=== PATIENT | male | born 1955 | race Caucasian/White ===

== ENCOUNTER → 2023-04-08 06:29 | Outpatient (REF) | payer BC, SELFPAY ==
[2023-04-08 07:15] LABS: % Basophils 0.7 % (0-2); % Eosinophils 6.1 % (0-6); % Immature Granulocytes 0.1 % (0-0.5); % Lymphocytes 28.6 % (20.5-51.1); % Monocytes 8.3 % (1.7-9.3); % Neutrophils 56.2 % (42.2-75.2); Absolute Basophils 0.1 10^3/uL (0-0.2); Absolute Eosinophils 0.4 10^3/uL (0-0.7); Absolute Lymphocytes 1.9 10^3/uL (1.2-3.4); Absolute Monocytes 0.6 10^3/uL (0.1-0.6); Absolute Neutrophils 3.8 10^3/uL (1.4-6.5); Hematocrit 38.8 % (39.0-52.0); Hemoglobin 13.3 g/dL (13.0-18.0); Mean Corp Hgb Conc. 34.3 g/dL (33.0-37.0); Mean Corpuscular Hgb 30.8 pg (27.0-31.0); Mean Corpuscular Volume 89.8 fL (80.0-94.0); Mean Platelet Volume 10.6 fL (7.4-10.4); Nucleated Red Blood Cells % 0 % (-); Platelet Count 232 10^3/uL (130-400); Red Blood Cell Count 4.32 10^6/uL (4.70-6.10); Red Cell Dist. Width 13.3 % (11.5-14.5); White Blood Cell Count 6.8 10^3/uL (4.8-10.8)
[2023-04-08 07:32] LABS: Urine Albumin Trace (Neg - Trace); Urine Bilirubin Negative (Negative); Urine Character Clear (Clear); Urine Color Yellow; Urine Glucose Negative (Negative); Urine Ketone Negative (Negative); Urine Leukocyte Negative (Negative); Urine Nitrite Negative (Negative); Urine Occult Blood Negative (Negative); Urine Urobilinogen Negative (Neg - 1+)
[2023-04-08 08:03] LABS: ALT (SGPT) 40 U/L (0-50); AST (SGOT) 32 U/L (17-59); Albumin 4.5 g/dl (3.5-5.0); Alkaline Phosphatase 101 U/L (38-126); Blood Urea Nitrogen 19 mg/dl (9-20); Calcium 9.6 mg/dl (8.4-10.2); Carbon Dioxide 25 mmol/L (22-30); Chloride 105 mmol/L (98-107); Glucose 222 mg/dl (70-99); HDL Cholesterol 51 mg/dl; LDL Cholesterol, Calculated 78 mg/dl; Potassium 4.6 mmol/L (3.5-5.1); Sodium 136 mmol/L (135-145); Total Cholesterol 168 mg/dl (50-199); Total Protein 7.3 g/dl (6.3-8.2); Triglyceride 197 mg/dl (10-149); Very Low Density Lipoprotein 39 mg/dl (0-30); eGFR > 60.00
[2023-04-08 09:29] LABS: Glycohemoglobin (HgbA1c) 10.4 % (4.0-5.6)
[2023-04-10 11:52] LABS: Fructosamine 364 umol/L (205-285)
== END ==
LOC: REG 06:29
PROVIDERS: ATTENDING PHYSICIAN Internal Medicine Geriatric Medicine
DX: E78.2 Mixed hyperlipidemia (principal); M54.16 Radiculopathy, lumbar region; M25.561 Pain in right knee; I73.9 Peripheral vascular disease, unspecified
CPT/HCPCS: 36415; 80053; 80061; 81003; 82985; 83036; 85025

== ENCOUNTER → 2023-08-13 06:17 | Outpatient (REF) | payer BC, SELFPAY ==
[2023-08-13 07:22] LABS: % Eosinophils 3.8 % (0-6); % Immature Granulocytes 0.3 % (0-0.5); % Lymphocytes 34.5 % (20.5-51.1); % Monocytes 7.9 % (1.7-9.3); % Neutrophils 52.5 % (42.2-75.2); Absolute Basophils 0.1 10^3/uL (0-0.2); Absolute Eosinophils 0.3 10^3/uL (0-0.7); Absolute Lymphocytes 2.5 10^3/uL (1.2-3.4); Absolute Monocytes 0.6 10^3/uL (0.1-0.6); Absolute Neutrophils 3.9 10^3/uL (1.4-6.5); Hematocrit 40.2 % (39.0-52.0); Hemoglobin 13.3 g/dL (13.0-18.0); Mean Corp Hgb Conc. 33.1 g/dL (33.0-37.0); Mean Corpuscular Hgb 30.3 pg (27.0-31.0); Mean Corpuscular Volume 91.6 fL (80.0-94.0); Mean Platelet Volume 10.8 fL (7.4-10.4); Nucleated Red Blood Cells % 0 % (-); Platelet Count 224 10^3/uL (130-400); Red Blood Cell Count 4.39 10^6/uL (4.70-6.10); Red Cell Dist. Width 12.6 % (11.5-14.5); Urine Albumin Negative (Neg - Trace); Urine Bilirubin Negative (Negative); Urine Character Clear (Clear); Urine Color Yellow; Urine Glucose Negative (Negative); Urine Ketone Negative (Negative); Urine Leukocyte Negative (Negative); Urine Nitrite Negative (Negative); Urine Occult Blood Negative (Negative); Urine Urobilinogen Negative (Neg - 1+); White Blood Cell Count 7.4 10^3/uL (4.8-10.8)
[2023-08-13 08:02] LABS: ALT (SGPT) 40 U/L (0-50); AST (SGOT) 33 U/L (17-59); Albumin 4.6 g/dl (3.5-5.0); Alkaline Phosphatase 90 U/L (38-126); Blood Urea Nitrogen 22 mg/dl (9-20); Calcium 9.9 mg/dl (8.4-10.2); Carbon Dioxide 25 mmol/L (22-30); Chloride 103 mmol/L (98-107); Glucose 187 mg/dl (70-99); HDL Cholesterol 54 mg/dl; LDL Cholesterol, Calculated 60 mg/dl; Potassium 4.4 mmol/L (3.5-5.1); Sodium 140 mmol/L (135-145); Total Bilirubin 0.9 mg/dl (0.2-1.3); Total Cholesterol 166 mg/dl (50-199); Total Protein 7.2 g/dl (6.3-8.2); Triglyceride 261 mg/dl (10-149); Very Low Density Lipoprotein 52 mg/dl (0-30); eGFR > 60.00
[2023-08-13 09:39] LABS: Glycohemoglobin (HgbA1c) 9.3 % (4.0-5.6)
== END ==
LOC: REG 06:17
PROVIDERS: ATTENDING PHYSICIAN Internal Medicine Geriatric Medicine
DX: E78.2 Mixed hyperlipidemia (principal); M54.16 Radiculopathy, lumbar region; M25.561 Pain in right knee; I73.9 Peripheral vascular disease, unspecified; Z13.31 Encounter for screening for depression; E11.41 Type 2 diabetes mellitus with diabetic mononeuropathy; G58.9 Mononeuropathy, unspecified; Z13.89 Encounter for screening for other disorder
CPT/HCPCS: 36415; 80053; 80061; 81003; 83036; 85025

== ENCOUNTER → 2023-12-24 07:02 | Outpatient (REF) | payer BC, SELFPAY ==
[2023-12-24 07:51] LABS: % Basophils 0.8 % (0-2); % Eosinophils 4.6 % (0-6); % Immature Granulocytes 0.2 % (0-0.5); % Lymphocytes 32.8 % (20.5-51.1); % Monocytes 8.9 % (1.7-9.3); % Neutrophils 52.7 % (42.2-75.2); Absolute Basophils 0.1 10^3/uL (0-0.2); Absolute Eosinophils 0.3 10^3/uL (0-0.7); Absolute Monocytes 0.6 10^3/uL (0.1-0.6); Absolute Neutrophils 3.2 10^3/uL (1.4-6.5); Hematocrit 40.9 % (39.0-52.0); Mean Corp Hgb Conc. 34.2 g/dL (33.0-37.0); Mean Corpuscular Hgb 30.4 pg (27.0-31.0); Mean Corpuscular Volume 88.9 fL (80.0-94.0); Mean Platelet Volume 10.3 fL (7.4-10.4); Nucleated Red Blood Cells % 0 % (-); Platelet Count 263 10^3/uL (130-400); Red Cell Dist. Width 12.7 % (11.5-14.5); White Blood Cell Count 6.2 10^3/uL (4.8-10.8)
[2023-12-24 08:20] LABS: Microalbumin, Random Urine 4.5 mg/dl (0.6-1.7)
[2023-12-24 08:24] LABS: HDL Cholesterol 61 mg/dl; LDL Cholesterol, Calculated 63 mg/dl; Total Cholesterol 166 mg/dl (50-199); Triglyceride 211 mg/dl (10-149); Very Low Density Lipoprotein 42 mg/dl (0-30)
[2023-12-24 08:34] LABS: Vitamin D, 25-OH*** 46.1 ng/mL (30-80)
[2023-12-24 08:43] LABS: Microalbumin/creatinine Ratio 29.5 mg/g
[2023-12-24 08:53] LABS: Glycohemoglobin (HgbA1c) 9.1 % (4.0-5.6)
[2023-12-26 00:41] LABS: C-Peptide 2.7 ng/mL (0.5-3.3)
== END ==
LOC: REG 07:02
PROVIDERS: ATTENDING PHYSICIAN Internal Medicine Geriatric Medicine
DX: E11.9 Type 2 diabetes mellitus without complications (principal); E78.2 Mixed hyperlipidemia; M54.16 Radiculopathy, lumbar region; M25.561 Pain in right knee; I73.9 Peripheral vascular disease, unspecified; Z13.31 Encounter for screening for depression; E11.41 Type 2 diabetes mellitus with diabetic mononeuropathy; G58.9 Mononeuropathy, unspecified; Z13.89 Encounter for screening for other disorder
CPT/HCPCS: 36415; 80061; 82043; 82306; 82570; 83036; 84681; 85025

== ENCOUNTER → 2024-07-27 06:34 | Outpatient (REF) | payer BC, SELFPAY ==
[2024-07-27 07:43] LABS: % Eosinophils 5.7 % (0-6); % Immature Granulocytes 0.2 % (0-0.5); % Lymphocytes 40.4 % (20.5-51.1); % Monocytes 8.6 % (1.7-9.3); % Neutrophils 44.1 % (42.2-75.2); Absolute Basophils 0.1 10^3/uL (0-0.2); Absolute Eosinophils 0.4 10^3/uL (0-0.7); Absolute Lymphocytes 2.5 10^3/uL (1.2-3.4); Absolute Monocytes 0.5 10^3/uL (0.1-0.6); Absolute Neutrophils 2.7 10^3/uL (1.4-6.5); Hematocrit 38.7 % (39.0-52.0); Mean Corp Hgb Conc. 33.6 g/dL (33.0-37.0); Mean Corpuscular Volume 92.4 fL (80.0-94.0); Mean Platelet Volume 10.4 fL (7.4-10.4); Nucleated Red Blood Cells % 0 % (-); Platelet Count 247 10^3/uL (130-400); Red Blood Cell Count 4.19 10^6/uL (4.70-6.10); Red Cell Dist. Width 12.9 % (11.5-14.5); White Blood Cell Count 6.1 10^3/uL (4.8-10.8)
[2024-07-27 07:57] LABS: Urine Albumin 1+ (Neg - Trace); Urine Bilirubin Negative (Negative); Urine Character Clear (Clear); Urine Color Yellow; Urine Glucose Negative (Negative); Urine Ketone Negative (Negative); Urine Leukocyte Negative (Negative); Urine Nitrite Negative (Negative); Urine Occult Blood Negative (Negative); Urine Urobilinogen Negative (Neg - 1+)
[2024-07-27 08:12] LABS: Urine Mucus Moderate
[2024-07-27 08:13] LABS: ALT (SGPT) 38 U/L (0-50); AST (SGOT) 31 U/L (17-59); Albumin 4.8 g/dl (3.5-5.0); Alkaline Phosphatase 68 U/L (38-126); Blood Urea Nitrogen 25 mg/dl (9-20); Calcium 9.7 mg/dl (8.4-10.2); Carbon Dioxide 23 mmol/L (22-30); Chloride 107 mmol/L (98-107); Glucose 154 mg/dl (70-99); HDL Cholesterol 60 mg/dl; LDL Cholesterol, Calculated 48 mg/dl; Sodium 141 mmol/L (135-145); Total Bilirubin 0.9 mg/dl (0.2-1.3); Total Cholesterol 139 mg/dl (50-199); Total Protein 7.4 g/dl (6.3-8.2); Triglyceride 157 mg/dl (10-149); Urine Red Blood Cell 0-2 /HPF (0-2); Urine White Cell 0-2 /HPF (0-5); Very Low Density Lipoprotein 31 mg/dl (0-30); eGFR > 60.00
[2024-07-27 08:24] LABS: Glycohemoglobin (HgbA1c) 8.2 % (4.0-5.6)
[2024-07-27 08:34] LABS: Potassium 4.5 mmol/L (3.5-5.1)
== END ==
LOC: REG 06:34
PROVIDERS: ATTENDING PHYSICIAN Internal Medicine Geriatric Medicine
DX: Z00.00 Encounter for general adult medical examination without abnormal findings (principal)
CPT/HCPCS: 36415; 80053; 80061; 81003; 81015; 83036; 85025

== ENCOUNTER → 2024-08-29 15:54 | Outpatient (REF) | payer BC, SELFPAY | LOC: RAD 15:54 | PROVIDERS: ATTENDING PHYSICIAN Internal Medicine Geriatric Medicine | DX: M54.2 Cervicalgia (principal); R20.2 Paresthesia of skin | CPT/HCPCS: 72052 ==

== ENCOUNTER → 2024-08-30 07:13 | Outpatient (REF) | payer BC, SELFPAY ==
[2024-08-30 08:57] LABS: Albumin 4.7 g/dl (3.5-5.0); Blood Urea Nitrogen 19 mg/dl (9-20); Calcium 9.8 mg/dl (8.4-10.2); Carbon Dioxide 23 mmol/L (22-30); Chloride 106 mmol/L (98-107); Glucose 205 mg/dl (70-99); Potassium 4.8 mmol/L (3.5-5.1); Sodium 137 mmol/L (135-145); eGFR > 60.00
== END ==
LOC: REG 07:13
PROVIDERS: ATTENDING PHYSICIAN Internal Medicine Geriatric Medicine
DX: E11.41 Type 2 diabetes mellitus with diabetic mononeuropathy (principal); E78.2 Mixed hyperlipidemia; M54.16 Radiculopathy, lumbar region; M25.561 Pain in right knee; I73.9 Peripheral vascular disease, unspecified; Z13.31 Encounter for screening for depression; G58.9 Mononeuropathy, unspecified; Z23 Encounter for immunization; E11.42 Type 2 diabetes mellitus with diabetic polyneuropathy
CPT/HCPCS: 36415; 80069; 82985

== ENCOUNTER → 2024-09-07 10:16 | Outpatient (REF) | payer BC, SELFPAY | LOC: PAVMRI 10:16 | PROVIDERS: ATTENDING PHYSICIAN Internal Medicine Geriatric Medicine | DX: R20.2 Paresthesia of skin (principal); M54.2 Cervicalgia | CPT/HCPCS: 72141 ==

== ENCOUNTER 2024-12-10 19:36 | Emergency (ER) | payer BC, SELFPAY ==
[2024-12-10 19:38] VITALS: BP 217/113
--- NOTE | 2024-12-10 20:38 | ED.GENMED ---
History of Present Illness
General
Chief Complaint: Back Pain
Source: patient
Exam Limitations: none
Time Seen by Provider: 12/10/24 20:36
Nursing documentation reviewed up to this point in time: agreed with
History of Present Illness
History of Present Illness:
Patient is a 69-year-old male with past medical history of spinal stenosis degenerative disc disease previous laminectomy presents today for urination. On Thursday he was pulling tomato plants out of his garden felt sudden pain in his right lower
back that went to his thigh. This has been persistent. His primary complaint is pain to the right thigh worse with standing and walking. He did see his family doctor on Thursday yesterday and was given naproxen and cyclobenzaprine without relief.
He denies any bowel or bladder incontinence. Denies any weakness in his lower extremities. Denies any saddle paresthesia or leg weakness. His primary complaint is pain. He denies any recent fever or chills.
Past History
Past History
ED Past Medical History: None
Social History
Tobacco: Non-smoker
Alcohol: None
Personal:
Living: with family
Phy Exam
General Physical Exam
General Presentation: no apparent distress
General age: appears stated age
General Skin: warm and dry
General Habitus: normal
General Mental: alert
General Hydration: appears well hydrated
Neurological Exam
Neurological Exam: alert, oriented x3, no motor deficits, no sensory deficits and other (Intact sensation to bilateral extremities normal dorsiflexion plantarflexion; neg straight leg raise b/l )
Musculoskeletal Exam
Musculoskeletal Exam: full ROM
Skin Exam
Skin Exam: normal color and warm/dry
Psychiatric Exam
Psychiatric Exam: normal mood/affect
Course
Orders/Labs/Results
Orders:
Orders
12/10/24 20:57
Dexamethasone Pf [Decadron] 10 mg PO NOW STA
12/10/24 20:58
Bladder Scan- Treatment ONCE
HYDROmorphone [Dilaudid] 1 mg IM NOW STA
12/10/24 22:50
Oxycodone [Roxicodone] 5 mg .ROUTE .STK-MED ONE
12/10/24 22:51
Oxycodone [Roxicodone] 5 mg PO NOW STA
Vital Signs
Initial and Last Documented VS:
Initial Vital Signs
Temp Pulse Resp BP Pulse Ox
97.8 F 84 16 217/113 97
12/10/24 19:38 12/10/24 19:38 12/10/24 19:38 12/10/24 19:38 12/10/24 19:38
Last Documented Vital Signs
Temp Pulse Resp BP Pulse Ox
97.8 F 60 20 154/78 98
12/10/24 19:38 12/10/24 22:09 12/10/24 22:09 12/10/24 22:09 12/10/24 22:54
MDM/Problems Addressed
Differential Diagnosis Includes:
Not limited to muscle sprain strain, sciatica radiculopathy
MDM/Problems Addressed:
Symptoms are consistent with sciatica. No neurological deficit patient has had sciatica in the past and this does feel similar. Patient complains of pain to the right thigh which shoots down from his back. He was given steroids and pain
medication here feeling better. He is on naproxen and Flexeril without relief we will have him stop naproxen and start steroid taper and stop Flexeril and start narcotic medicine for pain control. I did review with patient's at steroids can raise
his blood sugar to watch his diet closely watch his sugars. He is to follow-up with his family doctor the next several days.
*Pulse Oximetry
SaO2: 97
Oxygen Mode of Delivery: Room air
Patient hypoxic: no
*Critical Care Note
Total Time (30-74mins, 75-104mins- exclusive of procedures): Not Applicable
ED Attending Note
-
Portions of this chart may have been created with voice recognition software.� Occasional wrong word or��sound alike� substitutions may have occurred due to the inherent limitations of voice recognition software.
Discharge Plan
Departure
Patient Disposition: Home (Routine Discharge)
Date of Disposition: 12/10/24
Time of Disposition: 22:35
Patient with high blood pressure during this ER visit?: Yes
Condition: Fair
Covid-19: Not Applicable
Discharge Problem:
Sciatica
Instructions: Sciatica (DC), BLOOD PRESSURE
Prescriptions:
New
oxycodone 5 mg tablet
5 mg PO Q6H PRN (Reason: Pain) Qty: 10 0RF
prednisone 10 mg Tablet
See Rx Instructions .ROUTE .COMPLEX Qty: 30 0RF
Rx Instructions:
Take By Mouth:
40 mg daily x3 days, 30 mg daily x3 days,
20 mg daily x3 days, 10 mg daily x3 days.
No Action
metformin 1,000 mg Tablet
1,000 mg PO BID
ibuprofen [Advil] 200 mg Tablet
400 - 600 mg PO Q8H
Referrals:
Abdulaziz Singh MD [Family Provider, Internal Medicine]
Activity Restrictions/Additional Instructions:
As discussed stop Flexeril and stop Naproxen.
A prescription for steroids was sent to your pharmacy along with pain medication.
Take pain medicine as needed. This is a narcotic. No driving or drinking alcohol while taking this medication. This medication is also constipating please take an [id number] laxative and stool softener while taking this medication.
Steroids will raise your blood sugar please closely monitor your blood sugars and what you are eating.
Please follow-up with your family doctor the next several days for reevaluation. If symptoms persist you might need additional imaging/physical therapy. Return to the ER if any worsening of symptoms
Interventions
Interventions:
*Risk Screen - Suicide Last Done: 12/10/24 19:38
*General Assessment Last Done: 12/10/24 19:38
*Neglect/Abuse Screening Last Done: 12/10/24 19:38
*ED- Fall Risk Assessment Last Done: 12/10/24 19:38
*ED COVID-19 Vaccine History Last Done: 12/10/24 19:38
*ED Influenza Vaccine History Last Done: 12/10/24 19:38
*Nursing Disposition Last Done: 12/10/24 22:54
ED-Musculoskeletal Assessment Last Done: 12/10/24 21:13
Discharge Date and Time
Discharge Date/Time: 12/10/24 22:55
Print Language: DANISH
[2024-12-10] MEDS: DECADRON 10 MG PO (21:06)
[2024-12-10] MEDS: DILAUDID 1 MG IM (21:06)
[2024-12-10 21:13] VITALS: BMI 24.2
[2024-12-10 22:03] VITALS: BP 154/78
[2024-12-10 22:09] VITALS: BP 154/78
[2024-12-10] MEDS: ROXICODONE 5 MG PO (22:52)
== END 2024-12-10 22:55 | disposition home or self-care (01) ==
LOC: EMR 19:36
PROVIDERS: EMERGENCY PHYSICIAN Emergency Medicine; FAMILY PHYSICIAN Internal Medicine Geriatric Medicine
DX: M54.41 Lumbago with sciatica, right side (principal)
CPT/HCPCS: 99284; 96372

== ENCOUNTER → 2025-01-11 08:43 | Outpatient (REF) | payer BC, SELFPAY ==
[2025-01-11 10:18] LABS: Microalb - Urine Creatinine 161.900 mg/dl
[2025-01-11 10:20] LABS: Microalbumin, Random Urine 3.7 mg/dl (0.6-1.7)
== END ==
LOC: REG 08:43
PROVIDERS: ATTENDING PHYSICIAN Internal Medicine Geriatric Medicine
DX: E11.9 Type 2 diabetes mellitus without complications (principal)
CPT/HCPCS: 82043; 82570